=== PATIENT | female | born 1995 | race Caucasian/White ===

== ENCOUNTER → 2017-08-31 | Outpatient (REF) | payer BC ==
[2017-09-04 00:06] LABS: HPV HYBRID CAPTURE II Negative (Negative)
== END ==
LOC: M SFHCWAGY 09:51
DX: Z12.4 Encounter for screening for malignant neoplasm of cervix (principal); R87.610 Atypical squamous cells of undetermined significance on cytologic smear of cervix (ASC-US)
CPT/HCPCS: G0123

== ENCOUNTER → 2018-09-01 | Outpatient (REF) | payer BC | LOC: M SFHCWAGY 10:30 | PROVIDERS: ATTEND Nurse Practitioner Women's Health | DX: Z12.4 Encounter for screening for malignant neoplasm of cervix (principal) ==

== ENCOUNTER 2020-01-29 16:00 | Outpatient (CLI) | payer BC ==
[2020-01-29] MEDS ORDERED: methylPREDNISolone 1000 MG VIAL (J2930) As Ordered ONE (16:02)
[2020-01-29] MEDS ORDERED: methylPREDNISolone 1000 MG VIAL (J2930) ONE (16:02)
== END 2020-01-29 17:20 ==
LOC: M INFU 16:00
PROVIDERS: ATTEND Psychiatry & Neurology Neurology
DX: G35 Multiple sclerosis (principal)
CPT/HCPCS: 96365; J2930

== ENCOUNTER 2020-01-30 15:30 | Outpatient (CLI) | payer BC ==
[2020-01-30] MEDS ORDERED: methylPREDNISolone 1000 MG VIAL (J2930) As Ordered ONE (15:37)
[2020-01-30] MEDS ORDERED: methylPREDNISolone 1000 MG VIAL (J2930) ONE (15:37)
[2020-01-31] MEDS ORDERED: methylPREDNISolone 1000 MG VIAL (J2930) As Ordered ONE (15:45)
== END 2020-01-30 17:00 ==
LOC: M INFU 15:30
PROVIDERS: ATTEND Psychiatry & Neurology Neurology
DX: H46.9 Unspecified optic neuritis (principal)
CPT/HCPCS: 96365; J2930

== ENCOUNTER 2020-01-31 15:40 | Outpatient (CLI) | payer BC ==
[2020-01-31] MEDS ORDERED: methylPREDNISolone 1000 MG VIAL (J2930) ONE (15:45)
== END 2020-01-31 17:05 | disposition home or self-care (01) ==
LOC: M INFU 15:40
PROVIDERS: ATTEND Psychiatry & Neurology Neurology
DX: G35 Multiple sclerosis (principal)
CPT/HCPCS: 96365; J2930

== ENCOUNTER 2020-02-01 15:22 | Outpatient (CLI) | payer BC ==
[2020-02-01] MEDS ORDERED: methylPREDNISolone 1000 MG VIAL (J2930) ONE (15:23)
== END 2020-02-01 17:00 | disposition home or self-care (01) ==
LOC: M INFU 15:22
PROVIDERS: ATTEND Obstetrics & Gynecology Hospice and Palliative Medicine
DX: H46.9 Unspecified optic neuritis (principal)
CPT/HCPCS: 96365; J2930

== ENCOUNTER 2020-02-02 16:00 | Outpatient (CLI) | payer BC ==
[2020-02-02] MEDS ORDERED: methylPREDNISolone 1000 MG VIAL (J2930) ONE (16:20)
== END 2020-02-02 17:30 | disposition home or self-care (01) ==
LOC: M INFU 16:00
PROVIDERS: ATTEND Psychiatry & Neurology Neurology
DX: H46.9 Unspecified optic neuritis (principal)
CPT/HCPCS: 96365; J2930

== ENCOUNTER → 2020-04-15 | Outpatient (REF) | payer BC ==
[2020-04-16 13:07] LABS: HEPATITIS A ANTIBODY IGM NEGATIVE (NEGATIVE); HEPATITIS B CORE ANTIBODY IGM NEGATIVE (NEGATIVE); HEPATITIS B SURFACE ANTIGEN NEGATIVE (NEGATIVE); HEPATITIS C VIRUS ABY INDEX 0.1 INDEX (<0.8)
== END ==
LOC: M LAB REF 11:19
PROVIDERS: ATTEND Nurse Practitioner Adult Health
DX: R79.89 Other specified abnormal findings of blood chemistry (principal)

== ENCOUNTER → 2020-10-15 | Outpatient (CLI) | payer BC ==
[2020-10-15 18:29] LABS: BASO # 0.1 10^3/uL (0.0-0.2); BASO % 0.7 % (0.0-1.0); EOS # 0.2 10^3/uL (0.0-0.5); EOS % 1.9 % (0.0-3.0); HEMATOCRIT 41.4 % (36.0-47.0); LYMPH # 3.2 10^3/uL (1.5-5.0); LYMPH % 35.2 % (24.0-44.0); MEAN CORPUSCULAR HEMOGLOBIN 28.1 pg (27.0-33.0); MEAN CORPUSCULAR HGB CONC 31.4 g/dl (32.0-36.5); MEAN CORPUSCULAR VOLUME 89.6 fl (80.0-96.0); MONO # 0.7 10^3/uL (0.0-0.8); MONO % 7.8 % (2.0-8.0); NEUTROPHILS # 4.9 10^3/uL (1.5-8.5); NEUTROPHILS % 54.2 % (36.0-66.0); PLATELET COUNT, AUTOMATED 273 10^3/uL (150-450); RED BLOOD COUNT 4.62 10^6/uL (4.00-5.40); WHITE BLOOD COUNT 9.1 10^3/uL (4.0-10.0)
[2020-10-15 18:52] LABS: ALBUMIN 4.1 GM/DL (3.2-5.2); ALT/SGPT 22 U/L (12-78); BILIRUBIN,TOTAL 0.3 MG/DL (0.2-1.0); BLOOD UREA NITROGEN 16 MG/DL (7-18); CALCIUM LEVEL 9.1 MG/DL (8.5-10.1); CARBON DIOXIDE LEVEL 26 MEQ/L (21-32); CHLORIDE LEVEL 106 MEQ/L (98-107); CREATININE FOR GFR 0.68 MG/DL (0.55-1.30); GLOMERULAR FILTRATION RATE > 60.0 (>60); GLUCOSE, FASTING 84 MG/DL (70-100); POTASSIUM SERUM 4.2 MEQ/L (3.5-5.1); SODIUM LEVEL 138 MEQ/L (136-145); TOTAL PROTEIN 7.5 GM/DL (6.4-8.2)
[2020-10-15 18:59] LABS: TOTAL 25(OH) VITAMIN D 34.9 NG/ML (30.0-100.0)
== END ==
LOC: M LAB 16:48
PROVIDERS: ATTEND Psychiatry & Neurology Neurology
DX: G35 Multiple sclerosis (principal); E55.9 Vitamin D deficiency, unspecified

== ENCOUNTER 2020-11-04 08:18 | Outpatient (CLI) | payer BC ==
[~2020-11-04] VITALS: Ht 167.6 cm; Wt 75.0 kg
[2020-11-04 08:25] VITALS: BP 130/81
[2020-11-04] MEDS ORDERED: CLAR10CA3 PO (08:47)
[2020-11-04] MEDS ORDERED: EXCETAB33 PO (08:47)
[2020-11-04] MEDS ORDERED: NATALIZUMAB OVER 1 HOUR IV ONE ×2 (09:00)
[2020-11-04 09:21] VITALS: BP 130/81
[2020-11-04 10:15] VITALS: BP 138/66
[2020-11-04 11:00] VITALS: BP 120/75
== END 2020-11-04 11:00 | disposition home or self-care (01) ==
LOC: M INFU 08:18
PROVIDERS: ATTEND Psychiatry & Neurology Neurology
DX: G35 Multiple sclerosis (principal)
CPT/HCPCS: 96365; J2323

== ENCOUNTER 2020-12-02 11:29 | Outpatient (CLI) | payer BC ==
[~2020-12-02] VITALS: Ht 167.6 cm; Wt 75.0 kg
[~2020-12-02 11:29] MED LIST: CLAR10CA3 PO; EXCETAB33 PO
[2020-12-02] MEDS ORDERED: NATALIZUMAB OVER 1 HOUR IV ONE ×2 (11:30)
[2020-12-02 12:22] VITALS: BP 125/77
[2020-12-02 13:41] VITALS: BP 120/80
[2020-12-02 14:07] VITALS: BP 121/76
== END 2020-12-02 14:07 | disposition home or self-care (01) ==
LOC: M INFU 11:29
PROVIDERS: ATTEND Psychiatry & Neurology Neurology
DX: G35 Multiple sclerosis (principal)
CPT/HCPCS: 96365; J2323

== ENCOUNTER 2021-01-02 15:10 | Outpatient (CLI) | payer BC ==
[~2021-01-02] VITALS: Ht 167.6 cm; Wt 75.0 kg
[~2021-01-02 15:10] MED LIST changes: +NATALIZUMAB OVER 1 HOUR IV ONE; -TYSA1INJ IV
[2021-01-02 15:38] VITALS: BP 122/77
[2021-01-02] MEDS ORDERED: TYSA1INJ IV (16:35)
[2021-01-02 16:44] VITALS: BP 107/73
== END 2021-01-02 18:02 | disposition home or self-care (01) ==
LOC: M INFU 15:10
PROVIDERS: ATTEND Psychiatry & Neurology Neurology
DX: G35 Multiple sclerosis (principal)
CPT/HCPCS: 96365; J2323

== ENCOUNTER → 2021-01-02 | Outpatient (CLI) | payer BC ==
[~2021-01-02] MED LIST changes: +TYSA1INJ IV
[2021-01-02 16:11] LABS: HEMATOCRIT 37.2 % (36.0-47.0); HEMOGLOBIN 12.1 g/dl (12.0-15.5); MEAN CORPUSCULAR HEMOGLOBIN 28.7 pg (27.0-33.0); MEAN CORPUSCULAR HGB CONC 32.5 g/dl (32.0-36.5); MEAN CORPUSCULAR VOLUME 88.4 fl (80.0-96.0); PLATELET COUNT, AUTOMATED 242 10^3/uL (150-450); RED BLOOD COUNT 4.21 10^6/uL (4.00-5.40)
[2021-01-02 16:45] LABS: ALBUMIN 3.8 GM/DL (3.2-5.2); ALT/SGPT 24 U/L (12-78); BILIRUBIN,TOTAL 0.4 MG/DL (0.2-1.0); BLOOD UREA NITROGEN 13 MG/DL (7-18); CALCIUM LEVEL 8.7 MG/DL (8.5-10.1); CARBON DIOXIDE LEVEL 27 MEQ/L (21-32); CHLORIDE LEVEL 108 MEQ/L (98-107); CREATININE FOR GFR 0.79 MG/DL (0.55-1.30); GLOMERULAR FILTRATION RATE > 60.0 (>60); GLUCOSE, FASTING 87 MG/DL (70-100); POTASSIUM SERUM 3.9 MEQ/L (3.5-5.1); SODIUM LEVEL 142 MEQ/L (136-145); TOTAL PROTEIN 6.7 GM/DL (6.4-8.2)
[2021-01-02 17:16] LABS: BASOPHILS 2 % (0-1); EOSINOPHILS 3 % (0-3); LYMPHOCYTES 54 % (16-44); MONOCYTES 6 % (0-5); NEUTROPHILS 35 % (28-66); PLATELET ESTIMATE NORMAL (NORMAL)
== END ==
LOC: M LAB 15:16
PROVIDERS: ATTEND Psychiatry & Neurology Neurology
DX: G35 Multiple sclerosis (principal)

== ENCOUNTER 2021-01-30 15:29 | Outpatient (CLI) | payer BC ==
[~2021-01-30] VITALS: Ht 167.6 cm; Wt 75.0 kg
[~2021-01-30 15:29] MED LIST changes: +TYSA1INJ IV
[2021-01-30 15:44] VITALS: BP 120/82
[2021-01-30 17:40] VITALS: BP 123/76
== END 2021-01-30 17:45 | disposition home or self-care (01) ==
LOC: M INFU 15:29
PROVIDERS: ATTEND Psychiatry & Neurology Neurology
DX: G35 Multiple sclerosis (principal)
CPT/HCPCS: 96365; 96366; J2323

== ENCOUNTER → 2021-02-27 | Outpatient (CLI) | payer BC ==
[~2021-02-27] VITALS: Ht 167.6 cm; Wt 75.0 kg
[2021-02-27 15:00] VITALS: BP 141/71
[2021-02-27 15:19] VITALS: BP 141/71
[2021-02-27 16:59] VITALS: BP 126/73
== END ==
LOC: M INFU 14:58
PROVIDERS: ATTEND Psychiatry & Neurology Neurology
DX: G35 Multiple sclerosis (principal)
CPT/HCPCS: 96365; J2323

== ENCOUNTER 2021-03-27 08:34 | Outpatient (CLI) | payer BC ==
[~2021-03-27] VITALS: Ht 167.6 cm; Wt 75.0 kg
[2021-03-27 09:00] VITALS: BP 133/68
[2021-03-27 09:25] LABS: HEMATOCRIT 39.5 % (36.0-47.0); HEMOGLOBIN 12.7 g/dl (12.0-15.5); MEAN CORPUSCULAR HEMOGLOBIN 28.6 pg (27.0-33.0); MEAN CORPUSCULAR HGB CONC 32.2 g/dl (32.0-36.5); PLATELET COUNT, AUTOMATED 241 10^3/uL (150-450); RED BLOOD COUNT 4.44 10^6/uL (4.00-5.40)
[2021-03-27 10:12] LABS: ALBUMIN 3.5 GM/DL (3.2-5.2); ALT/SGPT 17 U/L (12-78); BILIRUBIN,TOTAL 0.4 MG/DL (0.2-1.0); BLOOD UREA NITROGEN 12 MG/DL (7-18); CALCIUM LEVEL 9.1 MG/DL (8.5-10.1); CARBON DIOXIDE LEVEL 28 MEQ/L (21-32); CHLORIDE LEVEL 106 MEQ/L (98-107); CREATININE FOR GFR 0.89 MG/DL (0.55-1.30); GLOMERULAR FILTRATION RATE > 60.0 (>60); GLUCOSE, FASTING 82 MG/DL (70-100); POTASSIUM SERUM 4.2 MEQ/L (3.5-5.1); SODIUM LEVEL 141 MEQ/L (136-145); TOTAL PROTEIN 6.6 GM/DL (6.4-8.2)
[2021-03-27 10:22] LABS: ATYPICAL LYMPH 4 % (0-5); EOSINOPHILS 4 % (0-3); LYMPHOCYTES 52 % (16-44); MONOCYTES 5 % (0-5); NEUTROPHILS 35 % (28-66); PLATELET ESTIMATE NORMAL (NORMAL)
[2021-03-27 10:59] VITALS: BP 121/64
== END 2021-03-27 10:55 | disposition home or self-care (01) ==
LOC: M INFU 08:34
PROVIDERS: ATTEND Psychiatry & Neurology Neurology
DX: G35 Multiple sclerosis (principal); J30.2 Other seasonal allergic rhinitis
CPT/HCPCS: 80053; 85025; 86711; 96365; J2323

== ENCOUNTER 2021-04-24 08:21 | Outpatient (CLI) | payer BC ==
[~2021-04-24] VITALS: Ht 167.6 cm; Wt 75.0 kg
[~2021-04-24 08:21] MED LIST changes: -NATALIZUMAB OVER 1 HOUR IV ONE
[2021-04-24] MEDS ORDERED: NATALIZUMAB OVER 1 HOUR IV ONE ×2 (08:30)
[2021-04-24 08:34] VITALS: BP 128/74
[2021-04-24 10:12] VITALS: BP 122/77
== END 2021-04-24 10:15 | disposition home or self-care (01) ==
LOC: M INFU 08:21
PROVIDERS: ATTEND Psychiatry & Neurology Neurology
DX: G35 Multiple sclerosis (principal)
CPT/HCPCS: 96365; J2323

== ENCOUNTER 2021-05-22 11:24 | Outpatient (CLI) | payer BC ==
[~2021-05-22] VITALS: Ht 167.6 cm; Wt 75.0 kg
[2021-05-22] MEDS ORDERED: NATALIZUMAB OVER 1 HOUR IV ONE ×2 (11:30)
[2021-05-22 11:32] VITALS: BP 132/72
[2021-05-22 12:51] VITALS: BP 126/80
== END 2021-05-22 12:50 | disposition home or self-care (01) ==
LOC: M INFU 11:24
PROVIDERS: ATTEND Psychiatry & Neurology Neurology
DX: G35 Multiple sclerosis (principal)
CPT/HCPCS: 96365; J2323

== ENCOUNTER → 2021-06-26 | Outpatient (CLI) | payer SELFPAY | LOC: M LABSMTC 10:07 | PROVIDERS: ATTEND Pediatrics | DX: Z20.822 Contact with and (suspected) exposure to COVID-19 (principal) ==

== ENCOUNTER 2021-07-21 13:02 | Outpatient (CLI) | payer OTHER ==
[2021-07-21 15:16] VITALS: BP 121/76
== END 2021-07-21 15:10 | disposition home or self-care (01) ==
LOC: M INFU 13:02
PROVIDERS: ATTEND Psychiatry & Neurology Neurology
DX: G35 Multiple sclerosis (principal)
CPT/HCPCS: 36415; 80053; 85025; 86711; 96365; J2323

== ENCOUNTER 2021-08-18 12:22 | Outpatient (CLI) | payer BC, OTHER, SELFPAY ==
[2021-08-18 12:25] VITALS: BP 117/67
[2021-08-18] MEDS ORDERED: NATALIZUMAB OVER 1 HOUR IV ONE ×2 (12:30)
[2021-08-18 14:02] VITALS: BP 120/71
== END 2021-08-18 14:15 | disposition home or self-care (01) ==
LOC: M INFU 12:22
PROVIDERS: ATTEND Psychiatry & Neurology Neurology
DX: G35 Multiple sclerosis (principal)
CPT/HCPCS: 96365; J2323

== ENCOUNTER 2021-09-15 11:50 | Outpatient (CLI) | payer BC, OTHER ==
[~2021-09-15] VITALS: Ht 167.6 cm; Wt 75.0 kg
[2021-09-15 12:00] VITALS: BP 127/81
[2021-09-15] MEDS ORDERED: NATALIZUMAB OVER 1 HOUR IV ONE ×2 (12:00)
[2021-09-15 13:19] VITALS: BP 131/84
== END 2021-09-15 13:20 | disposition home or self-care (01) ==
LOC: M INFU 11:50
PROVIDERS: ATTEND Psychiatry & Neurology Neurology
DX: G35 Multiple sclerosis (principal)
CPT/HCPCS: 96365; J2323

== ENCOUNTER 2021-10-14 13:21 | Outpatient (CLI) | payer OTHER ==
[~2021-10-14] VITALS: Ht 167.6 cm; Wt 75.0 kg
[2021-10-14] MEDS ORDERED: NATALIZUMAB OVER 1 HOUR IV ONE ×2 (13:30)
[2021-10-14 13:37] VITALS: BP 127/86
[2021-10-14 13:51] LABS: BASO # 0.1 10^3/uL (0.0-0.2); BASO % 0.8 % (0.0-1.0); EOS # 0.5 10^3/uL (0.0-0.5); EOS % 4.7 % (0.0-3.0); HEMATOCRIT 36.8 % (36.0-47.0); HEMOGLOBIN 12.2 g/dl (12.0-15.5); LYMPH # 5.5 10^3/uL (1.5-5.0); LYMPH % 55.5 % (24.0-44.0); MEAN CORPUSCULAR HEMOGLOBIN 29.3 pg (27.0-33.0); MEAN CORPUSCULAR HGB CONC 33.2 g/dl (32.0-36.5); MEAN CORPUSCULAR VOLUME 88.2 fl (80.0-96.0); MONO # 0.7 10^3/uL (0.0-0.8); MONO % 6.7 % (2.0-8.0); NEUTROPHILS # 3.1 10^3/uL (1.5-8.5); NEUTROPHILS % 31.7 % (36.0-66.0); PLATELET COUNT, AUTOMATED 236 10^3/uL (150-450); RED BLOOD COUNT 4.17 10^6/uL (4.00-5.40); WHITE BLOOD COUNT 9.8 10^3/uL (4.0-10.0)
[2021-10-14 14:25] LABS: ALBUMIN 3.8 GM/DL (3.2-5.2); ALT/SGPT 19 U/L (12-78); BILIRUBIN,TOTAL 0.4 MG/DL (0.2-1.0); BLOOD UREA NITROGEN 10 MG/DL (7-18); CALCIUM LEVEL 9.4 MG/DL (8.5-10.1); CARBON DIOXIDE LEVEL 27 MEQ/L (21-32); CHLORIDE LEVEL 109 MEQ/L (98-107); CREATININE FOR GFR 0.72 MG/DL (0.55-1.30); GLOMERULAR FILTRATION RATE > 60.0 (>60); GLUCOSE, FASTING 102 MG/DL (70-100); SODIUM LEVEL 141 MEQ/L (136-145); TOTAL PROTEIN 6.6 GM/DL (6.4-8.2)
[2021-10-14 15:06] VITALS: BP 132/85
== END 2021-10-14 15:10 | disposition home or self-care (01) ==
LOC: M INFU 13:21
PROVIDERS: ATTEND Psychiatry & Neurology Neurology
DX: G35 Multiple sclerosis (principal)
CPT/HCPCS: 36592; 80053; 85025; 86711; 96365; J2323

== ENCOUNTER 2021-11-10 12:22 | Outpatient (CLI) | payer OTHER ==
[~2021-11-10] VITALS: Ht 167.6 cm; Wt 75.0 kg
[~2021-11-10 12:22] MED LIST changes: +EXCETAB32 PO; -EXCETAB33 PO; +NATALIZUMAB OVER 1 HOUR IV ONE
[2021-11-10 12:34] VITALS: BP 133/72
[2021-11-10 14:02] VITALS: BP 119/71
== END 2021-11-10 14:00 | disposition home or self-care (01) ==
LOC: M INFU 12:22
PROVIDERS: ATTEND Psychiatry & Neurology Neurology
DX: G35 Multiple sclerosis (principal)
CPT/HCPCS: 96365; J2323

== ENCOUNTER 2021-12-08 11:35 | Outpatient (CLI) | payer OTHER ==
[~2021-12-08] VITALS: Ht 167.6 cm; Wt 75.0 kg
[~2021-12-08 11:35] MED LIST changes: -NATALIZUMAB OVER 1 HOUR IV ONE
[2021-12-08 11:45] VITALS: BP 131/89
[2021-12-08] MEDS ORDERED: NATALIZUMAB OVER 1 HOUR IV ONE ×2 (12:00)
== END 2021-12-08 13:10 | disposition home or self-care (01) ==
LOC: M INFU 11:35
PROVIDERS: ATTEND Psychiatry & Neurology Neurology
DX: G35 Multiple sclerosis (principal)
CPT/HCPCS: 96365; J2323

== ENCOUNTER → 2021-12-29 | Outpatient (REF) | payer OTHER | LOC: M LAB REF 16:18 | PROVIDERS: ATTEND Nurse Practitioner Adult Health | DX: Z11.59 Encounter for screening for other viral diseases (principal) ==

== ENCOUNTER 2022-01-05 11:55 | Outpatient (CLI) | payer OTHER ==
[~2022-01-05] VITALS: Ht 167.6 cm; Wt 75.0 kg
[2022-01-05 12:00] VITALS: BP 113/74
[2022-01-05] MEDS ORDERED: NATALIZUMAB OVER 1 HOUR IV ONE ×2 (12:00)
[2022-01-05 12:13] LABS: HEMATOCRIT 38.1 % (36.0-47.0); HEMOGLOBIN 12.5 g/dl (12.0-15.5); MEAN CORPUSCULAR HEMOGLOBIN 28.1 pg (27.0-33.0); MEAN CORPUSCULAR HGB CONC 32.8 g/dl (32.0-36.5); MEAN CORPUSCULAR VOLUME 85.6 fl (80.0-96.0); PLATELET COUNT, AUTOMATED 363 10^3/uL (150-450); RED BLOOD COUNT 4.45 10^6/uL (4.00-5.40); WHITE BLOOD COUNT 15.4 10^3/uL (4.0-10.0)
[2022-01-05 12:34] LABS: ATYPICAL LYMPH 4 % (0-5); BASOPHILS 1 % (0-1); EOSINOPHILS 5 % (0-3); LYMPHOCYTES 49 % (16-44); MONOCYTES 9 % (0-5); NEUTROPHILS 32 % (28-66); PLATELET ESTIMATE NORMAL (NORMAL)
[2022-01-05 12:50] LABS: ALBUMIN 3.5 GM/DL (3.2-5.2); ALT/SGPT 23 U/L (12-78); BILIRUBIN,TOTAL 0.5 MG/DL (0.2-1.0); BLOOD UREA NITROGEN 15 MG/DL (7-18); CALCIUM LEVEL 9.4 MG/DL (8.5-10.1); CARBON DIOXIDE LEVEL 29 MEQ/L (21-32); CHLORIDE LEVEL 103 MEQ/L (98-107); CREATININE FOR GFR 0.84 MG/DL (0.55-1.30); GLOMERULAR FILTRATION RATE > 60.0 (>60); GLUCOSE, FASTING 84 MG/DL (70-100); POTASSIUM SERUM 3.7 MEQ/L (3.5-5.1); SODIUM LEVEL 137 MEQ/L (136-145); TOTAL PROTEIN 6.7 GM/DL (6.4-8.2)
[2022-01-05 13:49] VITALS: BP 102/73
== END 2022-01-05 13:45 | disposition home or self-care (01) ==
LOC: M INFU 11:55
PROVIDERS: ATTEND Psychiatry & Neurology Neurology
DX: G35 Multiple sclerosis (principal)
CPT/HCPCS: 36592; 80053; 85025; 86711; 96365; J2323

== ENCOUNTER 2022-01-12 17:56 | Emergency (ER) | payer OTHER ==
[~2022-01-12] VITALS: Ht 167.6 cm; Wt 63.8 kg
[2022-01-12] MEDS ORDERED: ISOVUE-370 76% 100ML VIAL As Ordered ONE (18:35)
[2022-01-12] MEDS ORDERED: PRED20TA PO (18:37)
[2022-01-12 18:52] LABS: HEMATOCRIT 41.2 % (36.0-47.0); HEMOGLOBIN 13.6 g/dl (12.0-15.5); MEAN CORPUSCULAR HEMOGLOBIN 28.2 pg (27.0-33.0); MEAN CORPUSCULAR VOLUME 85.3 fl (80.0-96.0); PLATELET COUNT, AUTOMATED 344 10^3/uL (150-450); RED BLOOD COUNT 4.83 10^6/uL (4.00-5.40); WHITE BLOOD COUNT 16.5 10^3/uL (4.0-10.0)
[2022-01-12 18:58] LABS: INR 0.9; PROTHROMBIN TIME 12.6 SECONDS (12.7-14.5)
[2022-01-12 18:59] LABS: PARTIAL THROMBOPLASTIN TIME 29.1 SECONDS (25.9-37.0)
[2022-01-12 19:12] LABS: HCG, SERUM QUALITATIVE NEGATIVE (NEGATIVE)
[2022-01-12 19:38] LABS: BLOOD UREA NITROGEN 13 MG/DL (7-18); CALCIUM LEVEL 9.1 MG/DL (8.5-10.1); CARBON DIOXIDE LEVEL 23 mmol/L (20-29); CHLORIDE LEVEL 107 MEQ/L (98-107); GLOMERULAR FILTRATION RATE > 60.0 (>60); GLUCOSE, FASTING 93 MG/DL (70-100); POTASSIUM SERUM 3.7 MEQ/L (3.5-5.1); SODIUM LEVEL 139 MEQ/L (136-145)
[2022-01-12 19:43] LABS: CK-MB VALUE MASS < 1.0 NG/ML (<3.6); CPK CREATINE PHOSPHOKINASE 47 U/L (26-192); MB/CK RELATIVE INDEX 2.12 (< OR =4)
[2022-01-12 19:46] LABS: BASOPHILS 2 % (0-1); EOSINOPHILS 2 % (0-3); LYMPHOCYTES 38 % (16-44); MONOCYTES 10 % (0-5); NEUTROPHILS 46 % (28-66)
[2022-01-12 19:47] LABS: PLATELET ESTIMATE NORMAL (NORMAL)
[2022-01-12] MEDS ORDERED: DOXYCYCLINE HYCLATE 100MG TABLET PO ONE (20:10)
[2022-01-12] MEDS ORDERED: methylPREDNISolone 125MG 2ML VIAL IV ONE (20:10)
[2022-01-12 20:41] VITALS: BP 118/78
[2022-01-12] MEDS ORDERED: DOXY-443 PO (20:45)
== END 2022-01-12 20:57 | disposition home or self-care (01) ==
LOC: M ED 17:56
DX: G51.0 Bell's palsy (principal); J30.2 Other seasonal allergic rhinitis; Z79.82 Long term (current) use of aspirin; Z79.899 Other long term (current) drug therapy
CPT/HCPCS: 70450; 70496; 70498; 71045; 80047; 80048; 82550; 82553; 84484; 84703; 85025; 85610; 85730; 86618; 93005; 93041; 94760; 96374; 99285; J2930; Q9967

== ENCOUNTER → 2022-01-19 | Outpatient (REF) | payer OTHER ==
[~2022-01-19] MED LIST changes: +DOXY-443 PO; +PRED20TA PO
== END ==
LOC: M LAB REF 12:09
PROVIDERS: ATTEND Internal Medicine
DX: Z53.9 Procedure and treatment not carried out, unspecified reason (principal); W57.XXXA Bitten or stung by nonvenomous insect and other nonvenomous arthropods, initial encounter

== ENCOUNTER → 2022-01-20 | Outpatient (REF) | payer OTHER | LOC: M LAB REF 12:08 | PROVIDERS: ATTEND Nurse Practitioner Adult Health | DX: T14.8XXA Other injury of unspecified body region, initial encounter (principal); W57.XXXA Bitten or stung by nonvenomous insect and other nonvenomous arthropods, initial encounter ==

== ENCOUNTER 2022-02-10 09:30 | Outpatient (CLI) | payer OTHER ==
[~2022-02-10] VITALS: Ht 167.6 cm; Wt 61.4 kg
[~2022-02-10 09:30] MED LIST changes: +NATALIZUMAB OVER 1 HOUR IV ONE
[2022-02-10 09:47] VITALS: BP 141/63
[2022-02-10 11:15] VITALS: BP 126/72
== END 2022-02-10 11:15 | disposition home or self-care (01) ==
LOC: M INFU 09:30
PROVIDERS: ATTEND Psychiatry & Neurology Neurology
DX: G35 Multiple sclerosis (principal)
CPT/HCPCS: 96365; J2323

== ENCOUNTER 2022-03-13 12:15 | Outpatient (CLI) | payer OTHER ==
[~2022-03-13] VITALS: Ht 167.6 cm; Wt 75.0 kg
[2022-03-13 12:25] VITALS: BP 119/75
[2022-03-13 13:45] VITALS: BP 123/69
== END 2022-03-13 13:45 | disposition home or self-care (01) ==
LOC: M INFU 12:15
PROVIDERS: ATTEND Psychiatry & Neurology Neurology
DX: G35 Multiple sclerosis (principal)
CPT/HCPCS: 96365; J2323

== ENCOUNTER 2022-04-13 12:35 | Outpatient (CLI) | payer OTHER ==
[~2022-04-13] VITALS: Ht 167.6 cm; Wt 61.3 kg
[2022-04-13 12:35] VITALS: BP 130/76
[2022-04-13] MEDS ORDERED: D 50CAP2 PO (13:14)
[2022-04-13 13:30] VITALS: BP 130/76
[2022-04-13 14:25] VITALS: BP 113/74
== END 2022-04-13 14:25 | disposition home or self-care (01) ==
LOC: M INFU 12:35
PROVIDERS: ATTEND Psychiatry & Neurology Neurology
DX: G35 Multiple sclerosis (principal)
CPT/HCPCS: 96365; J2323

== ENCOUNTER 2022-05-13 12:38 | Outpatient (CLI) | payer OTHER ==
[~2022-05-13 12:38] MED LIST changes: +D 50CAP2 PO
[2022-05-13 12:45] VITALS: BP 140/63
[2022-05-13 13:51] LABS: HEMATOCRIT 39.6 % (36.0-47.0); HEMOGLOBIN 12.7 g/dl (12.0-15.5); MEAN CORPUSCULAR HEMOGLOBIN 28.6 pg (27.0-33.0); MEAN CORPUSCULAR HGB CONC 32.1 g/dl (32.0-36.5); MEAN CORPUSCULAR VOLUME 89.2 fl (80.0-96.0); PLATELET COUNT, AUTOMATED 269 10^3/uL (150-450); RED BLOOD COUNT 4.44 10^6/uL (4.00-5.40); WHITE BLOOD COUNT 12.5 10^3/uL (4.0-10.0)
[2022-05-13 14:08] LABS: ALBUMIN 3.8 G/DL (3.2-5.2); ALT/SGPT 16 U/L (7.0-40); BILIRUBIN,TOTAL 0.4 MG/DL (0.3-1.2); BLOOD UREA NITROGEN 19 MG/DL (9-23); CARBON DIOXIDE LEVEL 26 MMOL/L (20-31); CHLORIDE LEVEL 102 MMOL/L (98-107); CREATININE FOR GFR 0.74 MG/DL (0.55-1.30); GLOMERULAR FILTRATION RATE > 60.0 (>60); GLUCOSE, FASTING 92 MG/DL (60-100); SODIUM LEVEL 136 MMOL/L (136-145); TOTAL PROTEIN 6.7 G/DL (5.7-8.2); TOTAL PROTEIN 6.7 GM/DL (6.4-8.2)
[2022-05-13 14:25] VITALS: BP 124/75
[2022-05-13 15:08] LABS: ATYPICAL LYMPH 2 % (0-5); EOSINOPHILS 1 % (0-3); LYMPHOCYTES 44 % (16-44); MONOCYTES 7 % (0-5); NEUTROPHILS 46 % (28-66); PLATELET ESTIMATE NORMAL (NORMAL)
== END 2022-05-13 14:25 | disposition home or self-care (01) ==
LOC: M INFU 12:38
PROVIDERS: ATTEND Psychiatry & Neurology Neurology
DX: G35 Multiple sclerosis (principal)
CPT/HCPCS: 36415; 36592; 80053; 84165; 85025; 86335; 86711; 96365; J2323

== ENCOUNTER → 2022-06-12 | Outpatient (CLI) | payer OTHER ==
[~2022-06-12] VITALS: Ht 167.6 cm; Wt 63.6 kg
[2022-06-12 12:00] VITALS: BP 145/72
[2022-06-12 13:30] VITALS: BP 132/82
== END ==
LOC: M INFU 12:00
PROVIDERS: ATTEND Psychiatry & Neurology Neurology
DX: G35 Multiple sclerosis (principal)
CPT/HCPCS: 96365; J2323

== ENCOUNTER 2022-07-13 11:33 | Outpatient (CLI) | payer OTHER ==
[~2022-07-13] VITALS: Ht 167.6 cm; Wt 63.6 kg
[2022-07-13 11:45] VITALS: BP 118/61
[2022-07-13 13:20] VITALS: BP 117/66
== END 2022-07-13 12:20 | disposition home or self-care (01) ==
LOC: M INFU 11:33
PROVIDERS: ATTEND Psychiatry & Neurology Neurology
DX: G35 Multiple sclerosis (principal)

== ENCOUNTER 2022-08-24 11:30 | Outpatient (CLI) | payer OTHER ==
[2022-08-24 11:35] VITALS: BP 120/73
[2022-08-24 13:15] VITALS: BP 120/75
== END 2022-08-24 13:20 ==
LOC: M INFU 11:30
PROVIDERS: ATTEND Psychiatry & Neurology Neurology
DX: G35 Multiple sclerosis (principal)

== ENCOUNTER 2022-09-21 11:21 | Outpatient (CLI) | payer OTHER ==
[~2022-09-21 11:21] MED LIST changes: -NATALIZUMAB OVER 1 HOUR IV ONE
[2022-09-21] MEDS ORDERED: NATALIZUMAB OVER 1 HOUR IV ONE ×2 (11:30)
[2022-09-21 12:35] VITALS: BP 123/83
[2022-09-21 12:52] LABS: HEMATOCRIT 41.5 % (36.0-47.0); HEMOGLOBIN 13.7 g/dl (12.0-15.5); MEAN CORPUSCULAR HEMOGLOBIN 29.1 pg (27.0-33.0); MEAN CORPUSCULAR VOLUME 88.1 fl (80.0-96.0); PLATELET COUNT, AUTOMATED 283 10^3/uL (150-450); RED BLOOD COUNT 4.71 10^6/uL (4.00-5.40); WHITE BLOOD COUNT 9.3 10^3/uL (4.0-10.0)
[2022-09-21 13:23] VITALS: BP 124/75
[2022-09-21 13:35] LABS: ATYPICAL LYMPH 10 % (0-5); BASOPHILS 1 % (0-1); EOSINOPHILS 2 % (0-3); LYMPHOCYTES 52 % (16-44); MONOCYTES 3 % (0-5); NEUTROPHILS 32 % (28-66)
[2022-09-21 13:36] LABS: PLATELET ESTIMATE NORMAL (NORMAL)
[2022-09-21 15:21] LABS: ALBUMIN 3.9 G/DL (3.2-5.2); ALKALINE PHOSPHATASE 46 U/L (46-116); ALT/SGPT 14 U/L (7.0-40); AST/SGOT 11 U/L (<34); BILIRUBIN,TOTAL 0.7 MG/DL (0.3-1.2); BLOOD UREA NITROGEN 11 MG/DL (9-23); CALCIUM LEVEL 9.2 MG/DL (8.5-10.1); CARBON DIOXIDE LEVEL 26 MMOL/L (20-31); CHLORIDE LEVEL 103 MMOL/L (98-107); CREATININE FOR GFR 0.83 MG/DL (0.55-1.30); GLOMERULAR FILTRATION RATE > 60.0 (>60); GLUCOSE, FASTING 82 MG/DL (60-100); POTASSIUM SERUM 4.6 MMOL/L (3.5-5.1); SODIUM LEVEL 136 MMOL/L (136-145)
== END 2022-09-21 13:24 | disposition home or self-care (01) ==
LOC: M INFU 11:21
PROVIDERS: ATTEND Psychiatry & Neurology Neurology
DX: G35 Multiple sclerosis (principal)

== ENCOUNTER → 2022-09-23 | Outpatient (REF) | payer OTHER | LOC: M SFHCWAGY 18:01 | PROVIDERS: ATTEND Obstetrics & Gynecology | DX: Z12.4 Encounter for screening for malignant neoplasm of cervix (principal) ==

== ENCOUNTER 2022-10-21 11:45 | Outpatient (CLI) | payer OTHER ==
[~2022-10-21] VITALS: Ht 167.6 cm; Wt 64.0 kg
[~2022-10-21 11:45] MED LIST changes: +NATALIZUMAB OVER 1 HOUR IV ONE
[2022-10-21 11:54] VITALS: BP 129/74
[2022-10-21 13:30] VITALS: BP 123/80
== END 2022-10-21 13:30 | disposition home or self-care (01) ==
LOC: M INFU 11:45
PROVIDERS: ATTEND Psychiatry & Neurology Neurology
DX: G35 Multiple sclerosis (principal)

== ENCOUNTER 2022-12-23 11:25 | Outpatient (CLI) | payer OTHER ==
[~2022-12-23] VITALS: Ht 167.6 cm; Wt 64.0 kg
[~2022-12-23 11:25] MED LIST changes: -NATALIZUMAB OVER 1 HOUR IV ONE
[2022-12-23 11:30] VITALS: BP 137/94; O2SAT 98
[2022-12-23] MEDS ORDERED: NATALIZUMAB OVER 1 HOUR IV ONE ×2 (11:30)
[2022-12-23 12:16] LABS: BASO # 0.1 10^3/uL (0.0-0.2); BASO % 0.8 % (0.0-1.0); EOS # 0.2 10^3/uL (0.0-0.5); EOS % 2.5 % (0.0-3.0); HEMATOCRIT 39.5 % (36.0-47.0); HEMOGLOBIN 12.8 g/dl (12.0-15.5); LYMPH # 5.4 10^3/uL (1.5-5.0); LYMPH % 55.1 % (24.0-44.0); MEAN CORPUSCULAR HEMOGLOBIN 28.6 pg (27.0-33.0); MEAN CORPUSCULAR HGB CONC 32.4 g/dl (32.0-36.5); MEAN CORPUSCULAR VOLUME 88.4 fl (80.0-96.0); MONO # 0.6 10^3/uL (0.0-0.8); MONO % 6.5 % (2.0-8.0); NEUTROPHILS # 3.4 10^3/uL (1.5-8.5); NEUTROPHILS % 34.7 % (36.0-66.0); PLATELET COUNT, AUTOMATED 227 10^3/uL (150-450); RED BLOOD COUNT 4.47 10^6/uL (4.00-5.40); WHITE BLOOD COUNT 9.7 10^3/uL (4.0-10.0)
[2022-12-23 12:45] LABS: ALBUMIN 3.8 G/DL (3.2-5.2); ALKALINE PHOSPHATASE 43 U/L (46-116); ALT/SGPT 19 U/L (7.0-40); AST/SGOT < 8 U/L (<34); BILIRUBIN,TOTAL 0.5 MG/DL (0.3-1.2); BLOOD UREA NITROGEN 11 MG/DL (9-23); CALCIUM LEVEL 8.9 MG/DL (8.5-10.1); CARBON DIOXIDE LEVEL 27 MMOL/L (20-31); CHLORIDE LEVEL 106 MMOL/L (98-107); GLOMERULAR FILTRATION RATE > 60.0 (>60); GLUCOSE, FASTING 90 MG/DL (60-100); SODIUM LEVEL 139 MMOL/L (136-145); TOTAL PROTEIN 6.5 G/DL (5.7-8.2)
[2022-12-23 12:47] LABS: TOTAL 25(OH) VITAMIN D 68.2 NG/ML (20.0-100.0)
[2022-12-23 12:59] VITALS: BP 113/79; O2SAT 98
[2022-12-24 16:23] LABS: IMMUNOTYPING SERUM IGA SO 184 mg/dL (87-352); IMMUNOTYPING SERUM IGM SO 150 mg/dL (26-217)
== END 2022-12-23 13:00 ==
LOC: M INFU 11:25
PROVIDERS: ATTEND Psychiatry & Neurology Neurology
DX: G35 Multiple sclerosis (principal); Z91.048 Other nonmedicinal substance allergy status

== ENCOUNTER 2023-01-25 11:25 | Outpatient (CLI) | payer OTHER ==
[~2023-01-25] VITALS: Ht 167.6 cm; Wt 66.8 kg
[2023-01-25 11:25] VITALS: BP 124/67; O2SAT 97
[2023-01-25] MEDS ORDERED: NATALIZUMAB OVER 1 HOUR IV ONE ×2 (11:30)
[2023-01-25 13:15] VITALS: BP 118/75; O2SAT 99
== END 2023-01-25 13:20 | disposition home or self-care (01) ==
LOC: M INFU 11:25
PROVIDERS: ATTEND Psychiatry & Neurology Neurology
DX: G35 Multiple sclerosis (principal); Z91.048 Other nonmedicinal substance allergy status

== ENCOUNTER → 2023-03-09 | Outpatient (CLI) | payer OTHER ==
[2023-03-09 18:11] LABS: HEMATOCRIT 40.3 % (36.0-47.0); MEAN CORPUSCULAR HEMOGLOBIN 28.7 pg (27.0-33.0); MEAN CORPUSCULAR HGB CONC 32.3 g/dl (32.0-36.5); PLATELET COUNT, AUTOMATED 272 10^3/uL (150-450); RED BLOOD COUNT 4.53 10^6/uL (4.00-5.40); WHITE BLOOD COUNT 10.4 10^3/uL (4.0-10.0)
[2023-03-09 19:46] LABS: ATYPICAL LYMPH 11 % (0-5); BASOPHILS 1 % (0-1); EOSINOPHILS 5 % (0-3); LYMPHOCYTES 35 % (16-44); MONOCYTES 6 % (0-5); NEUTROPHILS 38 % (28-66); PLATELET ESTIMATE NORMAL (NORMAL)
[2023-03-10 06:36] LABS: ALBUMIN 3.8 G/DL (3.2-5.2); ALKALINE PHOSPHATASE 50 U/L (46-116); ALT/SGPT 18 U/L (7.0-40); AST/SGOT 13 U/L (<34); BILIRUBIN,TOTAL 0.3 MG/DL (0.3-1.2); BLOOD UREA NITROGEN 18 MG/DL (9-23); CALCIUM LEVEL 9.1 MG/DL (8.5-10.1); CARBON DIOXIDE LEVEL 28 MMOL/L (20-31); CHLORIDE LEVEL 105 MMOL/L (98-107); CREATININE FOR GFR 0.81 MG/DL (0.55-1.30); GLUCOSE, FASTING 91 MG/DL (60-100); POTASSIUM SERUM 4.3 MMOL/L (3.5-5.1); SODIUM LEVEL 140 MMOL/L (136-145)
[2023-03-10 06:38] LABS: HEPATITIS B SURFACE ANTIBODY NEGATIVE (POSITIVE)
[2023-03-10 07:10] LABS: HEPATITIS C VIRUS ABY INDEX 0.15 INDEX (<0.8)
== END ==
LOC: M LAB 16:45
PROVIDERS: ATTEND Psychiatry & Neurology Neurology
DX: G35 Multiple sclerosis (principal)

== ENCOUNTER 2023-04-08 08:40 | Outpatient (CLI) | payer OTHER ==
[~2023-04-08] VITALS: Ht 167.6 cm; Wt 66.2 kg
[2023-04-08] VITALS (7 sets, daily range): BP systolic 114–126; BP diastolic 66–85; TEMP 97.2–98.2; O2SAT 97–100
[2023-04-08] MEDS ORDERED: OCRELIZUMAB 300 MG in NS 250 ML IV ONE ×4 (09:00)
[2023-04-08] MEDS ORDERED: methylPREDNISolone 125MG 2ML VIAL IV ONE (09:00)
[2023-04-08] MEDS ORDERED: diphenhydrAMINE 25MG CAP PO ONE (09:00)
[2023-04-08] MEDS ORDERED: ACETAMINOPHEN TAB 650MG DOSE (2X325MG) PO ONE (09:00)
[2023-04-13] MEDS ORDERED: ZYRTTAB8 PO (16:36)
[2023-04-13] MEDS ORDERED: OCRE300I IV (16:36)
== END 2023-04-08 13:05 | disposition home or self-care (01) ==
LOC: M INFU 08:40
PROVIDERS: ATTEND Psychiatry & Neurology Neurology
DX: G35 Multiple sclerosis (principal); Z91.048 Other nonmedicinal substance allergy status
CPT/HCPCS: 96365; 96366; J2930

== ENCOUNTER → 2023-04-15 | Outpatient (CLI) | payer OTHER ==
[~2023-04-15] MED LIST changes: +OCRE300I IV; +ZYRTTAB8 PO
[2023-04-15 13:50] VITALS: TEMP 98.1
[2023-04-15 15:21] LABS: CSF TUBE# TP TUBE 1; TOTAL PROTEIN,CSF 26.6 MG/DL (15-45)
[2023-04-15 15:23] LABS: APPEARANCE, CSF CLEAR (CLEAR); COLOR, CSF COLORLESS (COLORLESS); CSF TUBE# CELL CNT TUBE 1
[2023-04-15 15:24] LABS: CSF TUBE# GLU TUBE 1
[2023-04-15 15:50] VITALS: BP 118/68; O2SAT 100
== END ==
LOC: M IRPRO 13:22
PROVIDERS: ATTEND Psychiatry & Neurology Neurology
DX: G35 Multiple sclerosis (principal)

== ENCOUNTER 2023-10-25 08:13 | Outpatient (CLI) | payer OTHER ==
[~2023-10-25] VITALS: Ht 167.6 cm; Wt 65.0 kg
[~2023-10-25 08:13] MED LIST changes: +DOXY-323 PO; -DOXY-443 PO
[2023-10-25 08:25] VITALS: BP 114/69; O2SAT 98
[2023-10-25] MEDS: diphenhydrAMINE 25MG CAP PO ONE (08:37)
[2023-10-25] MEDS: ACETAMINOPHEN TAB 650MG DOSE (2X325MG) PO ONE (08:37)
[2023-10-25] MEDS: methylPREDNISolone 125MG 2ML VIAL IV ONE (08:37)
[2023-10-25 08:50] LABS: BASO # 0.1 10^3/uL (0.0-0.2); EOS # 0.2 10^3/uL (0.0-0.5); EOS % 2.8 % (0.0-3.0); HEMATOCRIT 40.6 % (36.0-47.0); HEMOGLOBIN 13.4 g/dl (12.0-15.5); LYMPH # 1.8 10^3/uL (1.5-5.0); LYMPH % 30.8 % (24.0-44.0); MEAN CORPUSCULAR HEMOGLOBIN 29.3 pg (27.0-33.0); MEAN CORPUSCULAR VOLUME 88.8 fl (80.0-96.0); MONO # 0.6 10^3/uL (0.0-0.8); MONO % 9.6 % (2.0-8.0); NEUTROPHILS # 3.2 10^3/uL (1.5-8.5); NEUTROPHILS % 55.6 % (36.0-66.0); PLATELET COUNT, AUTOMATED 254 10^3/uL (150-450); RED BLOOD COUNT 4.57 10^6/uL (4.00-5.40); WHITE BLOOD COUNT 5.8 10^3/uL (4.0-10.0)
[2023-10-25] MEDS: OCRELIZUMAB 600 MG in NS 500 ML IV ONE (08:58)
[2023-10-25 09:24] LABS: ALBUMIN 3.2 G/DL (3.2-5.2); ALKALINE PHOSPHATASE 43 U/L (46-116); ALT/SGPT 16 U/L (7.0-40); AST/SGOT 9 U/L (<34); BILIRUBIN,TOTAL 0.4 MG/DL (0.3-1.2); BLOOD UREA NITROGEN 16 MG/DL (9-23); CALCIUM LEVEL 8.7 MG/DL (8.5-10.1); CARBON DIOXIDE LEVEL 28 MMOL/L (20-31); CHLORIDE LEVEL 107 MMOL/L (98-107); CREATININE FOR GFR 0.78 MG/DL (0.55-1.30); GLOMERULAR FILTRATION RATE > 60.0 (>60); GLUCOSE, FASTING 63 MG/DL (60-100); POTASSIUM SERUM 3.8 MMOL/L (3.5-5.1); SODIUM LEVEL 141 MMOL/L (136-145); TOTAL PROTEIN 6.3 G/DL (5.7-8.2)
[2023-10-25 09:30] VITALS: BP 121/74; O2SAT 99
[2023-10-25 10:00] VITALS: BP 116/63; O2SAT 100
[2023-10-25 10:30] VITALS: BP 117/74; O2SAT 100
[2023-10-25 11:00] VITALS: BP 112/64; O2SAT 100
[2023-10-25 13:05] VITALS: BP 132/73; O2SAT 97
[2023-10-26 18:07] LABS: IMMUNOTYPING SERUM IGA SO 191 mg/dL (87-352); IMMUNOTYPING SERUM IGM SO 171 mg/dL (26-217)
== END 2023-10-25 10:15 | disposition home or self-care (01) ==
LOC: M INFU 08:13
PROVIDERS: ATTEND Psychiatry & Neurology Neurology
DX: G35 Multiple sclerosis (principal); Z91.048 Other nonmedicinal substance allergy status
CPT/HCPCS: 36592; 80053; 82784; 84155; 84165; 85025; 86334; 96365; 96366; J2919

== ENCOUNTER 2024-06-30 08:27 | Outpatient (CLI) | payer OTHER ==
[~2024-06-30] VITALS: Ht 167.6 cm; Wt 66.8 kg
[~2024-06-30 08:27] MED LIST changes: -DOXY-323 PO; +DOXY-441 PO
[2024-06-30] MEDS: ACETAMINOPHEN 325 MG TAB PO ONE (08:44)
[2024-06-30] MEDS: diphenhydrAMINE 25MG CAP PO ONE (08:44)
[2024-06-30] MEDS: methylPREDNISolone 125MG 2ML VIAL IV ONE (08:44)
[2024-06-30 08:46] VITALS: BP 121/69; O2SAT 98
[2024-06-30] MEDS: OCRELIZUMAB 600 MG in NS 500 ML IV ONE (09:14)
[2024-06-30 09:45] VITALS: BP 130/68; O2SAT 97
[2024-06-30 10:15] VITALS: BP 124/67; O2SAT 100
[2024-06-30 10:45] VITALS: BP 120/70; O2SAT 100
[2024-06-30 11:15] VITALS: BP 110/62; O2SAT 100
[2024-06-30 13:00] VITALS: BP 131/94; O2SAT 100
== END 2024-06-30 13:00 ==
LOC: M INFU 08:27
PROVIDERS: ATTEND Psychiatry & Neurology Neurology
DX: G35 Multiple sclerosis (principal); Z91.048 Other nonmedicinal substance allergy status
CPT/HCPCS: 96365; 96366; J2919

== ENCOUNTER → 2024-07-13 | Outpatient (CLI) | payer OTHER | LOC: M ADAMS 10:11 | PROVIDERS: ATTEND Nurse Practitioner Adult Health | DX: S92.512A Displaced fracture of proximal phalanx of left lesser toe(s), initial encounter for closed fracture (principal); X58.XXXA Exposure to other specified factors, initial encounter; Y92.9 Unspecified place or not applicable; Y93.9 Activity, unspecified; Y99.9 Unspecified external cause status ==

== ENCOUNTER → 2024-09-25 | Outpatient (CLI) | payer OTHER | LOC: M ADAMS 14:30 | PROVIDERS: ATTEND Nurse Practitioner Adult Health | DX: S92.512A Displaced fracture of proximal phalanx of left lesser toe(s), initial encounter for closed fracture (principal); M79.672 Pain in left foot; R22.42 Localized swelling, mass and lump, left lower limb; Y93.9 Activity, unspecified; Y92.9 Unspecified place or not applicable ==

== ENCOUNTER → 2024-10-30 | Outpatient (CLI) | payer OTHER | LOC: M RAD 17:21 | PROVIDERS: ATTEND Physician Assistant Surgical | DX: S92.515S Nondisplaced fracture of proximal phalanx of left lesser toe(s), sequela (principal) ==

== ENCOUNTER 2024-12-28 08:28 | Outpatient (CLI) | payer OTHER ==
[~2024-12-28] VITALS: Ht 167.6 cm; Wt 66.0 kg
[2024-12-28 08:30] VITALS: BP 126/86; O2SAT 100
[2024-12-28] MEDS: ACETAMINOPHEN 325 MG TAB PO ONE (08:42)
[2024-12-28] MEDS: OCRELIZUMAB 600 MG in NS 500 ML IV ONE (09:29)
[2024-12-28 10:00] VITALS: BP 130/88; O2SAT 100
[2024-12-28 10:30] VITALS: BP 120/89; O2SAT 100
[2024-12-28 11:00] VITALS: BP 122/84; O2SAT 98
[2024-12-28 11:30] VITALS: BP 111/72; O2SAT 100
[2024-12-28 13:20] VITALS: BP 120/67; O2SAT 99
== END 2024-12-28 13:20 ==
LOC: M INFU 08:28
PROVIDERS: ATTEND Psychiatry & Neurology Neurology
DX: G35 Multiple sclerosis (principal); Z91.09 Other allergy status, other than to drugs and biological substances
CPT/HCPCS: 96365; 96366; J2919